=== PATIENT | male | born 1950 | race Caucasian/White ===

== ENCOUNTER 2024-05-29 07:27 | Day surgery (SDC) | payer OTHER ==
[~2024-05-29] VITALS: Ht 162.6 cm; Wt 316.8 kg
[~2024-05-29 07:27] MED LIST: SODIUM CHLORIDE 0.9% 1,000 ML ONE
[2024-05-29] MEDS ORDERED: BENZOCAINE 20% 50 MCG/SPRAY 57 GM TP ONE (07:28)
[2024-05-29] MEDS ORDERED: LIDOCAINE 2% 11 ML JELLY TP ONE (07:28)
[2024-05-29] MEDS ORDERED: ALBUTEROL SULFATE 2.5 MG/0.5 ML NEB SOLUTION NEB ONE (07:28)
[2024-05-29] MEDS ORDERED: LIDOCAINE 4% 50 ML SOLUTION TP ONE (07:28)
[2024-05-29] MEDS: SODIUM CHLORIDE 0.9% 1,000 ML IV ONE (08:41)
[2024-05-29] MEDS ORDERED: MIDAZOLAM HCL 2 MG/2 ML VIAL ONE (08:43)
[2024-05-29] MEDS ORDERED: FentaNYL CITRATE PF 100 MCG/2 ML VIAL ONE (08:43)
[2024-05-29] MEDS ORDERED: ALLO-97 PO (09:11)
[2024-05-29] MEDS ORDERED: ATOR40TA28 PO (09:11)
[2024-05-29] MEDS ORDERED: FERR325T27 PO (09:11)
[2024-05-29] MEDS ORDERED: ASPI-1450 PO (09:11)
[2024-05-29] MEDS ORDERED: CILO100T3 PO (09:11)
[2024-05-29] MEDS ORDERED: PHOSLOC PO (09:11)
[2024-05-29] MEDS ORDERED: CARV3 PO (09:11)
[2024-05-29] MEDS ORDERED: ISOS60TA58 PO (09:11)
[2024-05-29 10:07] VITALS: PULSE 69; RESP 12; O2SAT 100
[2024-05-29] MEDS ORDERED: MethylPREDNISolone SOD SUCC 125 MG/2 ML VIAL ONE (10:24)
[2024-05-29] MEDS: MethylPREDNISolone SOD SUCC 125 MG/2 ML VIAL IVP ONE (10:26)
== END 2024-05-29 12:55 | disposition home or self-care (01) ==
LOC: SURGERY 07:27
PROVIDERS: ATTEND Internal Medicine Critical Care Medicine
DX: R05.3 Chronic cough (principal); R04.2 Hemoptysis; J38.4 Edema of larynx; I10 Essential (primary) hypertension; E11.9 Type 2 diabetes mellitus without complications; B37.0 Candidal stomatitis; Z79.899 Other long term (current) drug therapy; Z90.49 Acquired absence of other specified parts of digestive tract; Z98.890 Other specified postprocedural states; E78.00 Pure hypercholesterolemia, unspecified; Z79.82 Long term (current) use of aspirin
CPT/HCPCS: 31623; 87206; 87101; 87220; 87070; 31624; 94640; 71045; 87015; 93005; J3010; J2250; J2919; J7030; 88108; J7613; Z7610

== ENCOUNTER → 2024-11-16 | Day surgery (SDC) | payer OTHER ==
[~2024-11-16] VITALS: Ht 165.1 cm; Wt 57.2 kg
[~2024-11-16] MED LIST changes: +ALLO-97 PO; +ASPI-1450 PO; +ATOR40TA28 PO; +CARV3 PO; +CILO100T3 PO; +FERR325T27 PO; +ISOS60TA58 PO; +NIFE-141 PO; +PHOSLOC PO; +PROPOFOL 1% 20 ML VIAL IVP ONE
[2024-11-16] MEDS: SODIUM CHLORIDE 0.9% 1,000 ML IV ONE (09:18)
== END | disposition home or self-care (01) ==
LOC: SDS 07:11
PROVIDERS: ATTEND Internal Medicine Gastroenterology
DX: K92.1 Melena (principal); D12.0 Benign neoplasm of cecum; D12.5 Benign neoplasm of sigmoid colon; I10 Essential (primary) hypertension; E11.9 Type 2 diabetes mellitus without complications; E78.00 Pure hypercholesterolemia, unspecified; Z90.49 Acquired absence of other specified parts of digestive tract; Z95.1 Presence of aortocoronary bypass graft; Z88.1 Allergy status to other antibiotic agents
CPT/HCPCS: 45385; 88305; C1769; J2704; J7030